=== PATIENT | female | born 1960 | race Caucasian/White ===

== ENCOUNTER 2017-05-28 07:20 | Outpatient (CLI) | payer OTHER | END 2017-05-28 07:21 | disposition home or self-care (01) | LOC: BICMAMMO 07:20 | PROVIDERS: ATTEND Family Medicine | DX: Z12.31 Encounter for screening mammogram for malignant neoplasm of breast (principal) | CPT/HCPCS: 77067; G0202 ==

== ENCOUNTER 2018-04-20 14:35 | Outpatient (CLI) | payer OTHER | END 2018-04-20 14:36 | disposition home or self-care (01) | LOC: BICMAMMO 14:35 | PROVIDERS: ATTEND Family Medicine | DX: Z12.31 Encounter for screening mammogram for malignant neoplasm of breast (principal); R92.1 Mammographic calcification found on diagnostic imaging of breast | CPT/HCPCS: 77063; 77067 ==

== ENCOUNTER 2018-12-25 07:17 | Outpatient (CLI) | payer OTHER ==
[2018-12-25 16:54] LABS: #Basophils 0.1 thou/uL (0.0-0.2); #Eosinphils 0.5 thou/uL (0.0-0.7); #Lymphocytes 2.2 thou/uL (1.20-3.40); #Monocytes 0.7 thou/uL (0.11-0.59); #Neutrophils 8.3 thou/uL (1.40-6.50); %Eosinophils 4.1 % (0.0-10.0); %Lymphocytes 18.9 % (21.0-51.0); %Monocytes 5.8 % (0.0-10.0); %Neutrophils 70.3 % (42.0-75.0); Hemoglobin 12.9 g/dL (12.0-16.0); Mean Corpuscular HGB CONC 32.1 g/dL (32.0-36.0); Mean Corpuscular Hemoglobin 27.9 pg (27.0-31.0); Mean Platelet Volume 9.7 fL (7.4-10.4); Platelet Count 197 thou/uL (130-400); RBC Distribution Width 13.9 % (11.5-14.5); Red Blood Cell (RBC) Count 4.61 mill/uL (4.20-5.40); White Blood Cell (WBC) Count 11.8 thou/uL (4.8-10.8)
[2018-12-25 16:56] LABS: Bilirubin Negative (Negative); Blood, Urine Negative (Negative); Clarity Clear (Clear); Glucose, Urine (Dipstick) Greater than 1000 mg/dL (Negative); Leukocyte Negative Leu/uL (Negative); Nitrite Negative (Negative); Protein, Urine (Dipstick) 10 mg/dL (Neg-Trace); Squamous Epithelial 0-3 HPF (0-3); Urobilinogen Normal mg/dL (Less than 2); WBC/HPF 0-3 HPF (0-3)
[2018-12-25 17:08] LABS: Bacteria/HPF Rare-Few HPF (None Seen)
--- NOTE | 2018-12-28 17:00 | EKG ---
Test Reason : Blood Pressure : / mmHG Vent. Rate : 090 BPM Atrial Rate : 090 BPM P-R Int : 134 ms QRS Dur : 088 ms QT Int : 410 ms P-R-T Axes : 031 088 026 degrees QTc Int : 501 ms Normal sinus rhythm Nonspecific T wave abnormality Prolonged QT Abnormal ECG Confirmed by BRYON GONZALEZ ([id number]) on 12/28/2018 5:00:20 PM Referred By: WILIAN Confirmed By:BRYON GONZALEZ
== END 2018-12-25 07:18 | disposition home or self-care (01) ==
LOC: LABBT 07:17
PROVIDERS: ATTEND Orthopaedic Surgery Hand Surgery
DX: Z01.818 Encounter for other preprocedural examination (principal); M65.312 Trigger thumb, left thumb
CPT/HCPCS: 81001; 85025; 93005; 93010

== ENCOUNTER 2018-12-28 12:05 | Day surgery (SDC) | payer OTHER ==
[2018-12-25 16:05] VITALS: BMI 30.7
[2018-12-28] MEDS ORDERED: Betamet Acet/Betamet Na Ph 30 MG/5 ML VIAL ONE (14:45)
[2018-12-28] MEDS ORDERED: Bupivacaine PF 0.5% 30 ML VIAL ONE (14:45)
[2018-12-28] MEDS ORDERED: Bacitracin Zinc Ointment 30 gm TUBE ONE (14:50)
[2018-12-28] MEDS ORDERED: Fentanyl 100 MCG/2 ML VIAL ONE (14:51)
[2018-12-28] MEDS ORDERED: PROPOFOL 200 MG/20 ML VIAL ONE (15:29)
[2018-12-28] MEDS ORDERED: Dexamethasone 20 MG/5 ML VIAL ONE (15:29)
[2018-12-28] MEDS ORDERED: Ondansetron PF 4 MG/2 ML Vial ONE (15:29)
[2018-12-28] MEDS ORDERED: diphenhydrAMINE 50 MG/ML VIAL ONE (15:29)
[2018-12-28] MEDS ORDERED: Lidocaine 1% PF 5 ML VIAL ONE (15:29)
[2018-12-28] MEDS ORDERED: Ketorolac Tromethamine 30 MG/ML VIAL ONE (16:39)
[2018-12-28] MEDS ORDERED: HYDROcodone/Acetaminophen 5/325 mg Tablet ONE (17:19)
--- NOTE | 2018-12-29 07:52 | OP ---
DATE OF PROCEDURE: 12/28/2018 PREOPERATIVE DIAGNOSES: Left thumb A1 rea trigger digit. POSTOPERATIVE DIAGNOSIS: Very thick A1 rea and thickened tendon underneath without mass, otherwise seen. PROCEDURES PERFORMED: 1. Left trigger digit release, thumb. 2. Celestone injection. ESTIMATED BLOOD LOSS: 5 mL. TOURNIQUET TIME: 14 minutes. FINDINGS: Again, tight A1 rea without significant tenosynovitis. Thus, no tenosynovectomy was accomplished. DESCRIPTION OF PROCEDURE: After successful general endotracheal anesthesia by [facility], Dr. Escobar and staff, the patient then had the time-out done appropriately. The limb was prepped and draped. We outlined a zigzag incision centered on the subcutaneous mass at the A1 rae, injected with 7 mL of 0.5% Marcaine and exsanguinated the limb. We inflated the tourniquet to 250 mmHg pressure. Incision was carried through the skin and subcutaneous tissue, identified both the digital nerve, radial and ulnar and protected them throughout the procedure. We visualized the A1 rea in the center field. It was very thick, almost 2.5 mm and we released it. We then lifted up the tendon and saw it, it was somewhat thickened, but there was no mass underneath, so we did not perform a tenosynovectomy and there was no tenosynovitis. We released the tourniquet. We obtained hemostasis, placed 3 mL of Celestone into the A1 rea area of the release and closed the incision with interrupted 4-0 nylon in simple pattern. The patient left the operating room without evidence of anesthetic or operative complication. Job ID: [id number]
== END 2018-12-28 17:30 | disposition home or self-care (01) ==
LOC: SDC 12:05
PROVIDERS: ATTEND Orthopaedic Surgery Hand Surgery
PROC: 0LN80ZZ Release Left Hand Tendon, Open Approach (ICD-10-PCS; principal; 2018-12-28)
DX: M65.312 Trigger thumb, left thumb (principal); E11.9 Type 2 diabetes mellitus without complications; E78.5 Hyperlipidemia, unspecified; K21.9 Gastro-esophageal reflux disease without esophagitis; E66.9 Obesity, unspecified; Z68.30 Body mass index [BMI] 30.0-30.9, adult; Z88.8 Allergy status to other drugs, medicaments and biological substances; Z79.82 Long term (current) use of aspirin; Z79.84 Long term (current) use of oral hypoglycemic drugs; Z79.899 Other long term (current) drug therapy
CPT/HCPCS: J0131; J0690; J0702; J1100; J1200; J1885; J2001; J2405; J2704; J3010; S0020

== ENCOUNTER 2019-04-30 06:39 | Day surgery (SDC) | payer OTHER ==
[2019-04-29 11:12] VITALS: BMI 29.7
[2019-04-30] MEDS ORDERED: Bupivacaine PF 0.5% 30 ML VIAL ONE (09:35)
[2019-04-30] MEDS ORDERED: Bacitracin Zinc Ointment 30 gm TUBE ONE (09:36)
[2019-04-30] MEDS ORDERED: Famotidine/PF 20 mg/2ml Vial ONE (09:36)
[2019-04-30] MEDS ORDERED: Fentanyl 100 MCG/2 ML VIAL ONE (09:36)
[2019-04-30] MEDS ORDERED: Sodium Chloride 0.9% 10 ML ONE (09:36)
[2019-04-30] MEDS ORDERED: ePHEDrine/0.9% NaCl/PF SYRINGE 50 mg/10 ml ONE (11:14)
[2019-04-30] MEDS ORDERED: Dexamethasone 20 MG/5 ML VIAL ONE (11:14)
[2019-04-30] MEDS ORDERED: Metoclopramide HCl 10 MG/2 ML VIAL ONE (11:14)
[2019-04-30] MEDS ORDERED: Ondansetron PF 4 MG/2 ML Vial ONE (11:14)
[2019-04-30] MEDS ORDERED: PROPOFOL 200 MG/20 ML VIAL ONE (11:14)
[2019-04-30] MEDS ORDERED: Lidocaine 1% PF 5 ML VIAL ONE (11:14)
[2019-04-30] MEDS ORDERED: PHENYLEPHRINE-NS 100 MCG/ML 10 ML SYRINGE ONE (11:14)
[2019-04-30] MEDS ORDERED: Ketorolac Tromethamine 30 MG/ML VIAL ONE (11:36)
--- NOTE | 2019-04-30 16:02 | OP ---
DATE OF PROCEDURE: 04/30/2019 PREOPERATIVE DIAGNOSIS: Left thumb contracture with painful scar. 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 INTRATOPERATIVE FINDINGS: Dense scar both cutaneous, dermal, and from the dermis back to the tendon and old remnant of A1 rea already has formed. PROCEDURE PERFORMED: 1. Excision of scar in multiple layers. 2. Scar revision with Z-plasty closure, four limbs of Z-plasty. DESCRIPTION OF PROCEDURE: After successful general endotracheal anesthesia, the limb was prepped and draped. We gave the patient a total of 20 mL of 0.5% Marcaine prior to procedure and 10 after the block. We then outlined an incision that was 1 cm longer and 3/4 cm proximal to include the scar and outlined at least a 4-limb Z-plasty. We then excised the scar and here it was noted that the scar now included the dermis and epidermis, but they had a subdermal portion reforming and it was fused into the tendon and may explain her pain with flexion extension. Once we removed the scar completely, we visualized the nerves and protected both the radial and ulnar branches. We placed Celestone in the scar bed. We outlined a Z-plasty with appropriate 120-degree angle and then we were able to create 4 limbs and rotate them into each other to the length of the scar. We then had the housing assistant hold the thumb webspace maximally abductor, closed the [id number] end of the Z-plasty technique, and closed any defects in between, all done with interrupted 4-0 nylon and the webspace could maintain its maximal abduction, going from adduction to abduction once all was tied. We released the tourniquet before, obtained hemostasis already placed Celestone and now placed in a bulky dressing with a splint holding in it max 1st web abduction. The digit was pink. The patient left the operating room without evidence of anesthetic or operative complication. Job ID: [id number]
== END 2019-04-30 12:49 | disposition home or self-care (01) ==
LOC: SDC 06:39
PROVIDERS: ATTEND Orthopaedic Surgery Hand Surgery
PROC: 0HBGXZZ Excision of Left Hand Skin, External Approach (ICD-10-PCS; principal; 2019-04-30)
PROC: 0HXGXZZ Transfer Left Hand Skin, External Approach (ICD-10-PCS; principal; 2019-04-30)
DX: M20.092 Other deformity of left finger(s) (principal); L90.5 Scar conditions and fibrosis of skin; E11.9 Type 2 diabetes mellitus without complications; E78.5 Hyperlipidemia, unspecified; K21.9 Gastro-esophageal reflux disease without esophagitis; M10.9 Gout, unspecified; E66.9 Obesity, unspecified; Z68.29 Body mass index [BMI] 29.0-29.9, adult; Z79.82 Long term (current) use of aspirin; Z79.84 Long term (current) use of oral hypoglycemic drugs; Z79.899 Other long term (current) drug therapy
CPT/HCPCS: 88305; J0131; J0690; J1100; J1885; J2001; J2405; J2704; J2765; J3010; J3490; S0020; S0028

== ENCOUNTER 2019-05-19 12:20 | Outpatient (CLI) | payer OTHER ==
--- NOTE | 2019-05-19 11:40 | MMO ---
Bilateral MAMMO Bilat Screen [facility]. CLINICAL HISTORY: Patient is 59 years old and is seen for screening. The patient has no family history of breast cancer. The patient has no personal history of cancer. The patient has a history of right needle biopsy in 2008 - benign. VIEWS: The views performed were: bilateral craniocaudal with tomosynthesis; bilateral mediolateral oblique with tomosynthesis; and bilateral exaggerated craniocaudal. FILMS COMPARED: The present examination has been compared to prior imaging studies performed at [facility] on 06/05/2015, 06/06/2016, 05/28/2017 and 04/20/2018. This study has been interpreted with the assistance of computer-aided detection. MAMMOGRAM FINDINGS: There are scattered fibroglandular densities. There are stable benign appearing calcifications seen in both breasts. There are no suspicious masses, calcifications or areas of architectural distortion. There are no suspicious masses, suspicious calcifications, or new areas of architectural distortion. IMPRESSION: THERE IS NO MAMMOGRAPHIC EVIDENCE OF MALIGNANCY. A ROUTINE FOLLOW-UP MAMMOGRAM IN 1 YEAR IS RECOMMENDED. THE RESULTS OF THIS EXAM WERE SENT TO THE PATIENT. ACR BI-RADS Category 2 - Benign finding MAMMOGRAPHY NOTE: 1. A negative mammogram report should not delay a biopsy if a dominant of clinically suspicious mass is present. 2. Approximately 10% to 15% of breast cancers are not detected by mammography. 3. Adenosis and dense breasts may obscure an underlying neoplasm. Reported by: NORMA VILLATORO MD Electonically Signed: [id number]
== END 2019-05-19 12:21 | disposition home or self-care (01) ==
LOC: BICMAMMO 12:20
PROVIDERS: ATTEND Family Medicine
DX: Z12.31 Encounter for screening mammogram for malignant neoplasm of breast (principal)
CPT/HCPCS: 77063; 77067

== ENCOUNTER 2020-03-06 12:40 | Outpatient (CLI) | payer OTHER ==
--- NOTE | 2020-03-06 13:23 | MRI ---
MRI Lumbar Spine WO Con History: Radiculopathy Comparison: Lumbar spine MRI 2013 Findings: The aortic contour is nonaneurysmal. No retroperitoneal periaortic adenopathy. No hydroneph rosis. No marrow infiltrative process. Possible hemangioma of the right T12 pedicle and pars interarticulari s. Posteriorly extruded synovial cyst from the right L4/L5 facet joint measuring 9 mm in craniocaudal di mension with a transverse and AP dimension up 4 mm. Modic type II endplate change at L5/S1. Disc space height loss at L5/S1 has progressed from 2013. Conus medullaris terminates near the inferior L1 endplate. Levels are as follows: L1/L2: Small disc bulge. Mild facet arthropathy. No neural foraminal or spinal canal narrowing. L2/L3: Minimal disc desiccation and height loss. No significant neural foraminal or spinal canal narr owing. L3/L4: Mild disc desiccation and height loss. Small facet joint effusions. Small circumferential disc osteophyte complex greatest in the lateral recesses. Moderate left and mild right neural foraminal narrowing. L4/L5: Moderate disc desiccation height loss. Large circumferential disc bulge greatest in the latera l recesses and subforaminal zones. Moderate hypertrophic facet arthrosis. Moderate bilateral neural foraminal narrowing with abutment of both traversing L5 nerve roots. L5/S1: Advanced degenerative disc space height loss. Moderate disc osteophyte complex. Moderate to s evere left and moderate right neural foraminal narrowing with the abutment of both exiting L5 and traversing S1 nerve roots. Moderate to severe hypertrophic facet arthrosis. Impression: Multilevel spondylosis as described, greatest at L4/L5 and L5/S1 has mildly progressed fr om 2013.
== END 2020-03-06 12:41 | disposition home or self-care (01) ==
LOC: TBSIIMAG 12:40
PROVIDERS: ATTEND Family Medicine
DX: M47.26 Other spondylosis with radiculopathy, lumbar region (principal); M47.817 Spondylosis without myelopathy or radiculopathy, lumbosacral region
CPT/HCPCS: 72148

== ENCOUNTER 2021-11-26 20:24 | Observation (INO) | payer OTHER ==
[2021-11-26 20:58] LABS: #Basophils 0.1 thou/uL (0.0-0.2); #Eosinphils 1.9 thou/uL (0.0-0.7); #Lymphocytes 2.7 thou/uL (1.20-3.40); #Monocytes 0.5 thou/uL (0.11-0.59); #Neutrophils 6.1 thou/uL (1.40-6.50); %Basophils 1.1 % (0.0-1.0); %Eosinophils 16.9 % (0.0-10.0); %Lymphocytes 23.6 % (21.0-51.0); %Monocytes 4.4 % (0.0-10.0); Hemoglobin 14.5 g/dL (12.0-16.0); Mean Corpuscular HGB CONC 32.6 g/dL (32.0-36.0); Mean Corpuscular Hemoglobin 28.3 pg (27.0-31.0); Mean Platelet Volume 8.9 fL (7.4-10.4); Platelet Count 189 thou/uL (130-400); RBC Distribution Width 13.9 % (11.5-14.5); White Blood Cell (WBC) Count 11.3 thou/uL (4.8-10.8)
[2021-11-26 21:20] LABS: ALT (SGPT) 17 U/L (8-55); AST (SGOT) 21 U/L (5-34); Albumin 4.1 g/dL (3.4-4.8); Alkaline Phosphatase 106 U/L (40-110); Anion Gap 15 mmol/L (10-20); BUN (Urea Nitrogen) 11 mg/dL (9.8-20.1); Bilirubin, Total 0.5 mg/dL (0.2-1.2); Calc. Creatinine Clearance 0 mL/min (70-130); Calcium 9.2 mg/dL (7.8-10.44); Carbon Dioxide 27 mmol/L (23-31); Chloride 103 mmol/L (98-107); Globulin 3.4 g/dL (2.4-3.5); Glucose 183 mg/dL (80-115); Potassium 4.1 mmol/L (3.5-5.1); Protein, Total 7.5 g/dL (5.8-8.1); Sodium 141 mmol/L (136-145)
[2021-11-26] MEDS ORDERED: Acetaminophen 500 MG TAB ONE (21:41)
[2021-11-26] MEDS ORDERED: Aspirin Chewable 81 MG TAB ONE (22:42)
[2021-11-27] MEDS ORDERED: Ondansetron PF 4 MG/2 ML Vial IVP PRN (00:45)
[2021-11-27] MEDS ORDERED: Acetaminophen 325 MG TAB PO PRN (00:45)
[2021-11-27] MEDS ORDERED: Ondansetron ODT 4 MG TAB SL PRN (00:45)
[2021-11-27 00:54] VITALS: BMI 28.5
[2021-11-27 01:07] LABS: Troponin I 0.017 ng/mL (< 0.028)
[2021-11-27 03:19] LABS: Troponin I Less than 0.010 ng/mL (< 0.028)
[2021-11-27] MEDS ORDERED: Dextrose 5% in Water 1,000 ML IV PRN (08:33)
[2021-11-27] MEDS ORDERED: HumaLOG 300 UNITS/3 ML VIAL SC PRN ×2 (08:33)
[2021-11-27] MEDS ORDERED: Dextrose 50% Abboject 50 ML SYRINGE SLOW IVP PRN (08:33)
[2021-11-27] MEDS ORDERED: Non-Formulary Item 1 EACH (Dulaglutide [Trulicity] 0.75 MG/0.5 ML Pen.Injctr) SC SCH (08:45)
[2021-11-27] MEDS ORDERED: Dulaglutide [Trulicity] 0.75 MG/0.5 ML Pen.Injctr SC SCH (09:00)
[2021-11-27] MEDS ORDERED: Non-Formulary Item 1 EACH (Buspirone Hcl [Buspirone Hcl] 7.5 MG Tablet) PO SCH (09:00)
[2021-11-27] MEDS: busPIRone HCl 5 MG TAB PO SCH ×2 (09:12→20:56)
[2021-11-27] MEDS: Famotidine 20 MG TAB PO SCH ×2 (09:13→20:58)
[2021-11-27] MEDS: Aspirin Chewable 81 MG TAB PO SCH (09:13)
[2021-11-27] MEDS ORDERED: Non-Formulary Item 1 EACH (Sertraline Hcl [Sertraline Hcl] 50 MG Tablet) PO SCH (21:00)
[2021-11-27] MEDS ORDERED: Simvastatin 40 MG TAB PO SCH (21:00)
[2021-11-27] MEDS ORDERED: Atorvastatin Calcium 20 MG TAB PO SCH (21:00)
[2021-11-27] MEDS ORDERED: Estradiol 1 MG TAB PO SCH (21:00)
[2021-11-28 05:36] LABS: #Basophils 0.1 thou/uL (0.0-0.2); #Eosinphils 1.6 thou/uL (0.0-0.7); #Lymphocytes 2.5 thou/uL (1.20-3.40); #Monocytes 0.6 thou/uL (0.11-0.59); #Neutrophils 5.3 thou/uL (1.40-6.50); %Basophils 0.8 % (0.0-1.0); %Eosinophils 15.6 % (0.0-10.0); %Monocytes 6.2 % (0.0-10.0); %Neutrophils 52.5 % (42.0-75.0); Hemoglobin 13.3 g/dL (12.0-16.0); Mean Corpuscular HGB CONC 32.6 g/dL (32.0-36.0); Mean Corpuscular Hemoglobin 28.6 pg (27.0-31.0); Mean Corpuscular Volume 87.7 fL (78.0-98.0); Platelet Count 163 thou/uL (130-400); RBC Distribution Width 13.9 % (11.5-14.5); Red Blood Cell (RBC) Count 4.64 mill/uL (4.20-5.40); White Blood Cell (WBC) Count 10.2 thou/uL (4.8-10.8)
[2021-11-28 05:56] LABS: ALT (SGPT) 17 U/L (8-55); AST (SGOT) 20 U/L (5-34); Albumin 3.5 g/dL (3.4-4.8); Alkaline Phosphatase 85 U/L (40-110); Anion Gap 9 mmol/L (10-20); BUN (Urea Nitrogen) 12 mg/dL (9.8-20.1); Bilirubin, Total 0.5 mg/dL (0.2-1.2); Calc. Creatinine Clearance 81 mL/min (70-130); Calcium 8.5 mg/dL (7.8-10.44); Carbon Dioxide 28 mmol/L (23-31); Chloride 103 mmol/L (98-107); Globulin 2.8 g/dL (2.4-3.5); Glucose 122 mg/dL (80-115); Potassium 4.1 mmol/L (3.5-5.1); Protein, Total 6.3 g/dL (5.8-8.1); Sodium 136 mmol/L (136-145)
[2021-11-28 08:25] VITALS: BP 124/66; TEMP 97.8
[2021-11-28] MEDS: Aspirin Chewable 81 MG TAB PO SCH (09:08)
[2021-11-28] MEDS: busPIRone HCl 5 MG TAB PO SCH (09:08)
[2021-11-28] MEDS: Famotidine 20 MG TAB PO SCH (09:10)
== END 2021-11-28 11:00 | disposition home or self-care (01) ==
LOC: ERS 20:24 → 2SW 23:00
PROVIDERS: ADMIT Internal Medicine; ATTEND Internal Medicine
DX: R07.89 Other chest pain (principal); K21.9 Gastro-esophageal reflux disease without esophagitis; E11.9 Type 2 diabetes mellitus without complications; E78.5 Hyperlipidemia, unspecified; F17.210 Nicotine dependence, cigarettes, uncomplicated; F17.290 Nicotine dependence, other tobacco product, uncomplicated; D72.829 Elevated white blood cell count, unspecified; Z79.82 Long term (current) use of aspirin; Z79.899 Other long term (current) drug therapy; Z20.822 Contact with and (suspected) exposure to COVID-19
CPT/HCPCS: 36415; 36416; 71045; 78452; 80053; 84484; 85025; 93005; 93017; 94760; A9500; G0378; U0003; U0005

== ENCOUNTER 2022-02-14 16:33 | Outpatient (CLI) | payer OTHER | END 2022-02-14 16:34 | disposition home or self-care (01) | LOC: LABBT 16:33 | PROVIDERS: ATTEND Surgery | DX: Z20.822 Contact with and (suspected) exposure to COVID-19 (principal) | CPT/HCPCS: 87811 ==

== ENCOUNTER → 2022-02-19 | Day surgery (SDC) | payer OTHER ==
[~2022-02-19] MED LIST: Lidocaine 2% Jelly 5 ML TUBE ONE
== END | disposition home or self-care (01) ==
LOC: SDC 13:29
PROVIDERS: ATTEND Surgery
DX: K44.9 Diaphragmatic hernia without obstruction or gangrene (principal); K21.9 Gastro-esophageal reflux disease without esophagitis
CPT/HCPCS: 91010

== ENCOUNTER 2022-03-22 16:30 | Outpatient (CLI) | payer OTHER ==
[2022-03-22 17:27] LABS: #Basophils 0.1 10x3/uL (0.0-0.2); #Eosinphils 0.3 10x3/uL (0.0-0.5); #Monocytes 0.6 10x3/uL (0.0-1.1); #Neutrophils 7.3 10x3/uL (1.5-8.4); %Basophils 0.8 % (0.0-2.0); %Eosinophils 3.2 % (0.0-6.0); %Lymphocytes 20.9 % (18.0-47.0); %Monocytes 5.9 % (0.0-10.0); %Neutrophils 68.6 % (40.0-75.0); Hemoglobin 14.4 g/dL (12.0-15.5); Mean Corpuscular HGB CONC 32.4 g/dL (32.0-36.0); Mean Corpuscular Hemoglobin 27.3 pg (27.0-33.0); Mean Corpuscular Volume 84.1 fl (81.6-98.3); Mean Platelet Volume 11.9 fl (7.4-10.4); Platelet Count 245 10x3/uL (150-450); RBC Distribution Width 14.7 % (11.5-14.5); Red Blood Cell (RBC) Count 5.28 10x6/uL (3.90-5.03); White Blood Cell (WBC) Count 10.6 10x3/uL (3.5-10.5)
[2022-03-22 17:40] LABS: ALT (SGPT) 16 U/L (8-55); AST (SGOT) 21 U/L (5-34); Albumin 4.5 g/dL (3.4-4.8); Alkaline Phosphatase 77 U/L (40-110); Anion Gap 12 mmol/L (10-20); BUN (Urea Nitrogen) 13 mg/dL (9.8-20.1); Bilirubin, Total 0.5 mg/dL (0.2-1.2); Calc. Creatinine Clearance 0 mL/min (70-130); Calcium 9.3 mg/dL (7.8-10.44); Carbon Dioxide 29 mmol/L (23-31); Chloride 102 mmol/L (98-107); Estimated GFR 74; Globulin 3.1 g/dL (2.4-3.5); Glucose 92 mg/dL (80-115); Potassium 3.9 mmol/L (3.5-5.1); Protein, Total 7.6 g/dL (5.8-8.1); Sodium 139 mmol/L (136-145)
== END 2022-03-22 16:31 | disposition home or self-care (01) ==
LOC: LABBT 16:30
PROVIDERS: ATTEND Surgery
DX: Z01.818 Encounter for other preprocedural examination (principal); Z20.822 Contact with and (suspected) exposure to COVID-19
CPT/HCPCS: 80053; 85025; 87811; 93005; 93010

== ENCOUNTER 2022-09-17 12:08 | Outpatient (CLI) | payer OTHER | END 2022-09-17 12:09 | disposition home or self-care (01) | LOC: BICMAMMO 12:08 | PROVIDERS: ATTEND Family Medicine | DX: Z12.31 Encounter for screening mammogram for malignant neoplasm of breast (principal) | CPT/HCPCS: 77063; 77067 ==

== ENCOUNTER 2024-03-11 07:52 | Outpatient (CLI) | payer OTHER ==
[2024-03-11 08:52] LABS: #Basophils 0.06 10x3/uL (0.0-0.2); %Basophils 0.7 % (0.0-1.0); %Eosinophils 3.3 % (0.0-10.0); %Lymphocytes 19.5 % (21.0-51.0); %Neutrophils 69.8 % (42.0-75.0); Hematocrit 45.8 % (36.0-47.0); Hemoglobin 14.3 g/dL (12.0-16.0); Mean Corpuscular HGB CONC 31.2 g/dL (32.0-36.0); Mean Corpuscular Hemoglobin 26.9 pg (27.0-31.0); Mean Corpuscular Volume 86.3 fL (78.0-98.0); Mean Platelet Volume 12.1 fL (7.4-10.4); Platelet Count 189 10x3/uL (130-400); RBC Distribution Width 14.9 % (11.5-14.5); Red Blood Cell (RBC) Count 5.31 mill/uL (4.20-5.40)
[2024-03-11 09:09] LABS: Anion Gap 11 mmol/L (10-20); BUN (Urea Nitrogen) 12 mg/dL (9.8-20.1); Calc. Creatinine Clearance 0 mL/min (70-130); Calcium 9.8 mg/dL (7.8-10.44); Carbon Dioxide 28 mmol/L (23-31); Chloride 100 mmol/L (98-107); Estimated GFR 71; Glucose 127 mg/dL (80-115); Potassium 4.2 mmol/L (3.5-5.1); Sodium 135 mmol/L (136-145)
== END 2024-03-11 07:53 | disposition home or self-care (01) ==
LOC: LABBT 07:52
PROVIDERS: ATTEND Orthopaedic Surgery Hand Surgery
DX: Z01.818 Encounter for other preprocedural examination (principal); G56.03 Carpal tunnel syndrome, bilateral upper limbs; M65.341 Trigger finger, right ring finger
CPT/HCPCS: 80048; 85025; 93005; 93010

== ENCOUNTER 2025-05-23 08:30 | Outpatient (CLI) | payer BC | END 2025-05-23 08:31 | disposition home or self-care (01) | LOC: BICMAMMO 08:30 | PROVIDERS: ATTEND Family Medicine | DX: Z13.820 Encounter for screening for osteoporosis (principal); Z78.0 Asymptomatic menopausal state | CPT/HCPCS: 77080 ==